=== PATIENT | male | born 1945 | race Caucasian/White ===

== ENCOUNTER 2016-02-18 09:44 | Emergency (ER) | payer OTHER, SELFPAY ==
[~2016-02-18 09:44] MED LIST: AMBI10TA PO; ASPI81TA45 PO; BUDE0.5S6 INH; CETI10TA PO; COLC1TAB13 PO; DIGO0.25 PO; DOXY10CA PO; ELIQ5TAB PO; FISH1000 PO; FURO20TA2 PO; LANO250T9 PO; LISI-538 PO; LISI10TA4 PO; PARO20TA2 PO; PARO40TA PO; PAXI40TA2 PO; PRED10TA PO; PROA1AER INH; PYRI100T5 PO; SENO8.6T10 PO; SOTA80TA2 PO; SYMB80INH INH; TENO1TAB3 PO; THIA100T PO; TYLE325T5 PO; VITA10002 PO; VITA100066 PO; VITA100T2 PO; VITATAB11 PO; VITMTA PO
--- NOTE | 2016-02-18 10:22 | EDDOCDS ---
Physician Documentation [facility] Name: Tru Kasper Age: 70 yrs Sex: Male : 1945 Arrival Date: 02/18/2016 Time: 09:44 Bed TR7 Private MD: [facility] Disposition: 02/18/16 10:08 Discharged to Home/Self Care. Impression: Effusion, left knee. - Condition is Stable. - Discharge Instructions: Knee Effusion, [id number]. - Prescriptions for Pennsaid 20 mg/gram /actuation(2 %) Topical solution in metered- dose pump - apply 1 application by TOPICAL route 2 times per day; 1 bottle. - Medication Reconciliation, Local Pharmacy Hours form. - Follow up: Orthopaedics, [facility]; When: Call to arrange an appointment; Reason: Further diagnostic work-up, Recheck today's complaints, Continuance of care. - Problem is new. - Symptoms are unchanged. Historical: - Allergies: no known allergies; - Home Meds: 1. albuterol sulfate 90 mcg/actuation Inhl aepb 1 puff every 4-6 hours as needed (Last dose: 02/18/2016 08:00) 2. atenolol 25 mg Oral tab 1 tab 2 times per day (Last dose: 02/18/2016 08:00) 3. cetirizine 10 mg oral tab 1 tab once daily (Last dose: 02/18/2016 08:00) 4. cyanocobalamin (vitamin B-12) 1,000 mcg oral tab daily (Last dose: 02/18/2016 08:00) 5. colchicine 0.6 mg Oral cap 1 cap once daily (Last dose: 02/18/2016 08:00) 6. apixaban 5 mg oral tab 1 tab 2 times per day (Last dose: 02/18/2016 08:00) 7. Symbicort 80-4.5 mcg/actuation inhalation HFAA 2 puffs 2 times per day (Last dose: 02/18/2016 08:00) 8. Vitamin D Oral 1,000 unit daily (Last dose: 02/18/2016 08:00) 9. digoxin 250 mcg Oral tab 1 tab once daily (Last dose: 02/18/2016 08:00) 10. paroxetine HCl 20 mg oral tab 1 tab once daily (Last dose: 02/18/2016 08:00) 11. pyridoxine 100 mg Oral tab daily (Last dose: 02/18/2016 08:00) 12. thiamine HCl 100 mg Oral tab daily (Last dose: 02/18/2016 08:00) 13. zolpidem 10 mg Oral tab 1 tab once daily (Last dose: 02/17/2016) - PMHx: Gout; CVA; Atrial Fib; Hypertension; COPD; Depression; Hypercholesterolemia; - PSHx: none; - Social history: Smoking status: Patient states was never smoker of tobacco. No barriers to communication noted, The patient speaks fluent Emirati. - Family history: Not pertinent. - : The pt / caregiver states he / she is on anticoagulants: Eliquis Home medication list is obtained from a discharge med list. - Exposure Risk Screening:: None identified. Vital Signs: 02/17 09:45 BP 101 / 57; Pulse 64; Resp 18; Temp 96.5; Pulse Ox 98% ; Weight 90.72 kg / 200 lbs elp (R); Height 6 ft. 2 in. (187.96 cm) (R); Pain 310; 09:45 Body Mass Index 25.68 (90.72 kg, 187.96 cm) elp Signatures: Renetta Anne RN RN Dutch Perla PA PA btw Castle, Jennifer RN RN jc4 MTDD
--- NOTE | 2016-02-18 10:22 | EDDOCDS ---
Nurse's Notes [facility] Name: Tru Kasper Age: 70 yrs Sex: Male : 1945 Arrival Date: 02/18/2016 Time: 09:44 Bed TR7 Private MD: [facility] [place] Diagnosis: Effusion, left knee Presentation: 02/17 09:49 Presenting complaint: Patient states: "it's the same problem as it was the last time. jc4 It's this knee, right this moment it's a 3". States that left knee is "somewhat is swollen and is in pain at times". Adult Sepsis Screening: The patient does not have new or worsening altered mentation. Patient's respiratory rate is less than 22. Systolic blood pressure is greater than 100. Patient has a qSOFA score of 0- Negative Sepsis Screen. Suicide/Homicide risk assessment- the patient denies having any suicidal and/or homicidal ideations and does not present with any other emotional, behavioral or mental health complaints. Status: Retired Marine. Transition of care: patient was not received from another setting of care. 09:49 Acuity: DEANNA Level 4 jc4 09:49 Method Of Arrival: Ambulance jc4 Triage Assessment: 09:57 General: Appears in no apparent distress. Pain: Pain currently is 3 out of 10 on a pain jc4 scale. Historical: - Allergies: no known allergies; - Home Meds: 1. albuterol sulfate 90 mcg/actuation Inhl aepb 1 puff every 4-6 hours as needed (Last dose: 02/18/2016 08:00) 2. atenolol 25 mg Oral tab 1 tab 2 times per day (Last dose: 02/18/2016 08:00) 3. cetirizine 10 mg oral tab 1 tab once daily (Last dose: 02/18/2016 08:00) 4. cyanocobalamin (vitamin B-12) 1,000 mcg oral tab daily (Last dose: 02/18/2016 08:00) 5. colchicine 0.6 mg Oral cap 1 cap once daily (Last dose: 02/18/2016 08:00) 6. apixaban 5 mg oral tab 1 tab 2 times per day (Last dose: 02/18/2016 08:00) 7. Symbicort 80-4.5 mcg/actuation inhalation HFAA 2 puffs 2 times per day (Last dose: 02/18/2016 08:00) 8. Vitamin D Oral 1,000 unit daily (Last dose: 02/18/2016 08:00) 9. digoxin 250 mcg Oral tab 1 tab once daily (Last dose: 02/18/2016 08:00) 10. paroxetine HCl 20 mg oral tab 1 tab once daily (Last dose: 02/18/2016 08:00) 11. pyridoxine 100 mg Oral tab daily (Last dose: 02/18/2016 08:00) 12. thiamine HCl 100 mg Oral tab daily (Last dose: 02/18/2016 08:00) 13. zolpidem 10 mg Oral tab 1 tab once daily (Last dose: 02/17/2016) - PMHx: Gout; CVA; Atrial Fib; Hypertension; COPD; Depression; Hypercholesterolemia; - PSHx: none; - Social history: Smoking status: Patient states was never smoker of tobacco. No barriers to communication noted, The patient speaks fluent Ivorian. - Family history: Not pertinent. - : The pt / caregiver states he / she is on anticoagulants: Eliquis Home medication list is obtained from a discharge med list. - Exposure Risk Screening:: None identified. Screenin:18 Screening information is obtained from the patient. Primary language is Ivorian. Fall dls risk: No risks identified. Assistance ADL's: requires no assistance with activities of daily living. Abuse/DV Screen: The patient / caregiver reports he/she is: not in a situation that causes fear, pain or injury. Nutritional screening: No deficits noted. Advance Directives: Currently, there is no health care proxy. There is no active DNR order. There is no living will. There is no Power of Hospital Admissions Officer. Advance directive information has not previously been placed in an [facility] medical record. home support is adequate. Assessment: 10:17 General: Appears in no apparent distress, Behavior is cooperative. Awake, alert, dls oriented. Skin warm and dry. Moves all extremities. Bilateral breath sounds clear. Respirations unlabored. Abdomen soft, non-tender. No apparent distress. The patient / caregiver is instructed regarding the plan of care and ED course. Vital Signs: 09:45 BP 101 / 57; Pulse 64; Resp 18; Temp 96.5; Pulse Ox 98% ; Weight 90.72 kg (R); Height 6 elp ft. 2 in. (187.96 cm) (R); Pain 3/10; 09:45 Body Mass Index 25.68 (90.72 kg, 187.96 cm) elp Vitals: 09:48 Log In Time N/A - ambulance arrival. elp ED Course: 09:45 Patient visited by Racheal Rogers PCA. elp 09:45 [facility] [place] is Private Physician. elp 09:45 Patient moved to Waiting elp 09:48 Patient moved to Pre RCE elp 09:51 Triage Initiated jc4 09:58 Patient moved to Triage 3 jc4 09:59 Dutch Marie [facility] is [facility]. btw 09:59 Luis Stern MD is Attending Physician. btw 09:59 Patient visited by Dutch Marie PA. btw 09:59 Patient moved to Triage 2 [facility]ls [facility] btw 10:17 Patient moved to TR7 jc4 10:18 Patient has correct armband on for positive identification. Bed in low position. Call dls light in reach. 10:21 No IV's were initiated during this patient's visit. No procedures done that require dls assistance. Order Results: There are currently no results for this order. Outcome: 10:08 Discharge ordered by Provider. btw 10:18 The following High Risk Discharge criteria are identified: None. Discharged to home dls ambulatory. Condition: stable. Discharge instructions given to patient, Instructed on discharge instructions, follow up and referral plans. medication usage, Demonstrated understanding of instructions, medications, Pt was receptive of discharge instructions/ teaching. Prescriptions given X 1. No special radiology studies were completed. 10:21 Discharge Assessment: Patient awake, alert and oriented x 3. No cognitive and/or dls functional deficits noted. Patient verbalized understanding of disposition instructions. patient administered narcotics - no. Discharged to home via wheelchair. Property :Personal belongings accompany Pt. 10:21 Patient left the ED. dls Signatures: Renetta Anne RN RN dls Wolfenden, Brandon, PA PA btw Castle, Jennifer, RN RN jc4 Patchen, Erin, PCA [facility] elp Corrections: (The following items were deleted from the chart) 09:48 09:45 Log In Time: February 18, 2016 at 09:43 elp elp MTDD
--- NOTE | 2016-02-21 10:46 | EDDOCDS ---
Physician Documentation [facility] Name: Tru Kasper Age: 70 yrs Sex: Male : 1945 Arrival Date: 02/18/2016 Time: 09:44 Bed TR7 Private MD: [facility] Disposition: 02/18/16 10:08 Discharged to Home/Self Care. Impression: Effusion, left knee. - Condition is Stable. - Discharge Instructions: Knee Effusion, [id number]. - Prescriptions for Pennsaid 20 mg/gram /actuation(2 %) Topical solution in metered- dose pump - apply 1 application by TOPICAL route 2 times per day; 1 bottle. - Medication Reconciliation, Local Pharmacy Hours form. - Follow up: Orthopaedics, [facility]; When: Call to arrange an appointment; Reason: Further diagnostic work-up, Recheck today's complaints, Continuance of care. - Problem is new. - Symptoms are unchanged. Historical: - Allergies: no known allergies; - Home Meds: 1. albuterol sulfate 90 mcg/actuation Inhl aepb 1 puff every 4-6 hours as needed (Last dose: 02/18/2016 08:00) 2. atenolol 25 mg Oral tab 1 tab 2 times per day (Last dose: 02/18/2016 08:00) 3. cetirizine 10 mg oral tab 1 tab once daily (Last dose: 02/18/2016 08:00) 4. cyanocobalamin (vitamin B-12) 1,000 mcg oral tab daily (Last dose: 02/18/2016 08:00) 5. colchicine 0.6 mg Oral cap 1 cap once daily (Last dose: 02/18/2016 08:00) 6. apixaban 5 mg oral tab 1 tab 2 times per day (Last dose: 02/18/2016 08:00) 7. Symbicort 80-4.5 mcg/actuation inhalation HFAA 2 puffs 2 times per day (Last dose: 02/18/2016 08:00) 8. Vitamin D Oral 1,000 unit daily (Last dose: 02/18/2016 08:00) 9. digoxin 250 mcg Oral tab 1 tab once daily (Last dose: 02/18/2016 08:00) 10. paroxetine HCl 20 mg oral tab 1 tab once daily (Last dose: 02/18/2016 08:00) 11. pyridoxine 100 mg Oral tab daily (Last dose: 02/18/2016 08:00) 12. thiamine HCl 100 mg Oral tab daily (Last dose: 02/18/2016 08:00) 13. zolpidem 10 mg Oral tab 1 tab once daily (Last dose: 02/17/2016) - PMHx: Gout; CVA; Atrial Fib; Hypertension; COPD; Depression; Hypercholesterolemia; - PSHx: none; - Social history: Smoking status: Patient states was never smoker of tobacco. No barriers to communication noted, The patient speaks fluent Telugu. - Family history: Not pertinent. - : The pt / caregiver states he / she is on anticoagulants: Eliquis Home medication list is obtained from a discharge med list. - Exposure Risk Screening:: None identified. Vital Signs: 02/17 09:45 BP 101 / 57; Pulse 64; Resp 18; Temp 96.5; Pulse Ox 98% ; Weight 90.72 kg / 200 lbs elp (R); Height 6 ft. 2 in. (187.96 cm) (R); Pain 3; 09:45 Body Mass Index 25.68 (90.72 kg, 187.96 cm) elp MDM: 10:23 [facility] Agreement was scanned into [employer] and attached to record. 10:23 Financial registration complete. 11:55 T-Sheet-- Draft Copy was scanned into [employer] and attached to record. [facility] Signatures: Renetta Anne RN RN dls Wolfenden, Brandon, PA PA btw Castle, Jennifer, RN RN jc4 Hoffert, Sarah seh McLear, Diane dm1 The chart was reviewed and I authenticate all verbal orders and agree with the evaluation and treatment provided.Attachments: 10: [facility] dm1 11:55 T-Sheet-- Draft Copy [facility] Chart Complete MTDD
--- NOTE | 2016-02-21 10:46 | EDDOCDS ---
Physician Documentation [facility] Name: Tru Kasper Age: 70 yrs Sex: Male : 1945 Arrival Date: 02/18/2016 Time: 09:44 Bed TR7 Private MD: [facility] Disposition: 02/18/16 10:08 Discharged to Home/Self Care. Impression: Effusion, left knee. - Condition is Stable. - Discharge Instructions: Knee Effusion, [id number]-[id number]. - Prescriptions for Pennsaid 20 mg/gram /actuation(2 %) Topical solution in metered- dose pump - apply 1 application by TOPICAL route 2 times per day; 1 bottle. - Medication Reconciliation, Local Pharmacy Hours form. - Follow up: Orthopaedics, [facility]; When: Call to arrange an appointment; Reason: Further diagnostic work-up, Recheck today's complaints, Continuance of care. - Problem is new. - Symptoms are unchanged. Historical: - Allergies: no known allergies; - Home Meds: 1. albuterol sulfate 90 mcg/actuation Inhl aepb 1 puff every 4-6 hours as needed (Last dose: 02/18/2016 08:00) 2. atenolol 25 mg Oral tab 1 tab 2 times per day (Last dose: 02/18/2016 08:00) 3. cetirizine 10 mg oral tab 1 tab once daily (Last dose: 02/18/2016 08:00) 4. cyanocobalamin (vitamin B-12) 1,000 mcg oral tab daily (Last dose: 02/18/2016 08:00) 5. colchicine 0.6 mg Oral cap 1 cap once daily (Last dose: 02/18/2016 08:00) 6. apixaban 5 mg oral tab 1 tab 2 times per day (Last dose: 02/18/2016 08:00) 7. Symbicort 80-4.5 mcg/actuation inhalation HFAA 2 puffs 2 times per day (Last dose: 02/18/2016 08:00) 8. Vitamin D Oral 1,000 unit daily (Last dose: 02/18/2016 08:00) 9. digoxin 250 mcg Oral tab 1 tab once daily (Last dose: 02/18/2016 08:00) 10. paroxetine HCl 20 mg oral tab 1 tab once daily (Last dose: 02/18/2016 08:00) 11. pyridoxine 100 mg Oral tab daily (Last dose: 02/18/2016 08:00) 12. thiamine HCl 100 mg Oral tab daily (Last dose: 02/18/2016 08:00) 13. zolpidem 10 mg Oral tab 1 tab once daily (Last dose: 02/17/2016) - PMHx: Gout; CVA; Atrial Fib; Hypertension; COPD; Depression; Hypercholesterolemia; - PSHx: none; - Social history: Smoking status: Patient states was never smoker of tobacco. No barriers to communication noted, The patient speaks fluent Nepali. - Family history: Not pertinent. - : The pt / caregiver states he / she is on anticoagulants: Eliquis Home medication list is obtained from a discharge med list. - Exposure Risk Screening:: None identified. Vital Signs: 02/17 09:45 BP 101 / 57; Pulse 64; Resp 18; Temp 96.5; Pulse Ox 98% ; Weight 90.72 kg / 200 lbs elp (R); Height 6 ft. 2 in. (187.96 cm) (R); Pain 3; 09:45 Body Mass Index 25.68 (90.72 kg, 187.96 cm) elp MDM: 10:23 [facility] [place] Agreement was scanned into [employer] and attached to record. 10:23 Financial registration complete. 11:55 T-Sheet-- Draft Copy was scanned into [employer] and attached to record. [facility] Signatures: Renetta Anne RN RN dls Wolfenden, Brandon, PA PA btw Castle, Jennifer, RN RN jc4 Hoffert, Sarah seh McLear, Diane dm1 The chart was reviewed and I authenticate all verbal orders and agree with the evaluation and treatment provided.Attachments: 10: [facility] [place] dm1 11:55 T-Sheet-- Draft Copy [facility] Chart Complete MTDD
--- NOTE | 2016-02-21 10:47 | EDDOCDS ---
Nurse's Notes [facility] Name: Tru Kasper Age: 70 yrs Sex: Male : 1945 Arrival Date: 02/18/2016 Time: 09:44 Bed TR7 Private MD: [facility] [place] Diagnosis: Effusion, left knee Presentation: 02/17 09:49 Presenting complaint: Patient states: "it's the same problem as it was the last time. jc4 It's this knee, right this moment it's a 3". States that left knee is "somewhat is swollen and is in pain at times". Adult Sepsis Screening: The patient does not have new or worsening altered mentation. Patient's respiratory rate is less than 22. Systolic blood pressure is greater than 100. Patient has a qSOFA score of 0- Negative Sepsis Screen. Suicide/Homicide risk assessment- the patient denies having any suicidal and/or homicidal ideations and does not present with any other emotional, behavioral or mental health complaints. Status: Retired Marine. Transition of care: patient was not received from another setting of care. 09:49 Acuity: DEANNA Level 4 jc4 09:49 Method Of Arrival: Ambulance jc4 Triage Assessment: 09:57 General: Appears in no apparent distress. Pain: Pain currently is 3 out of 10 on a pain jc4 scale. Historical: - Allergies: no known allergies; - Home Meds: 1. albuterol sulfate 90 mcg/actuation Inhl aepb 1 puff every 4-6 hours as needed (Last dose: 02/18/2016 08:00) 2. atenolol 25 mg Oral tab 1 tab 2 times per day (Last dose: 02/18/2016 08:00) 3. cetirizine 10 mg oral tab 1 tab once daily (Last dose: 02/18/2016 08:00) 4. cyanocobalamin (vitamin B-12) 1,000 mcg oral tab daily (Last dose: 02/18/2016 08:00) 5. colchicine 0.6 mg Oral cap 1 cap once daily (Last dose: 02/18/2016 08:00) 6. apixaban 5 mg oral tab 1 tab 2 times per day (Last dose: 02/18/2016 08:00) 7. Symbicort 80-4.5 mcg/actuation inhalation HFAA 2 puffs 2 times per day (Last dose: 02/18/2016 08:00) 8. Vitamin D Oral 1,000 unit daily (Last dose: 02/18/2016 08:00) 9. digoxin 250 mcg Oral tab 1 tab once daily (Last dose: 02/18/2016 08:00) 10. paroxetine HCl 20 mg oral tab 1 tab once daily (Last dose: 02/18/2016 08:00) 11. pyridoxine 100 mg Oral tab daily (Last dose: 02/18/2016 08:00) 12. thiamine HCl 100 mg Oral tab daily (Last dose: 02/18/2016 08:00) 13. zolpidem 10 mg Oral tab 1 tab once daily (Last dose: 02/17/2016) - PMHx: Gout; CVA; Atrial Fib; Hypertension; COPD; Depression; Hypercholesterolemia; - PSHx: none; - Social history: Smoking status: Patient states was never smoker of tobacco. No barriers to communication noted, The patient speaks fluent Burmese. - Family history: Not pertinent. - : The pt / caregiver states he / she is on anticoagulants: Eliquis Home medication list is obtained from a discharge med list. - Exposure Risk Screening:: None identified. Screenin:18 Screening information is obtained from the patient. Primary language is Burmese. Fall dls risk: No risks identified. Assistance ADL's: requires no assistance with activities of daily living. Abuse/DV Screen: The patient / caregiver reports he/she is: not in a situation that causes fear, pain or injury. Nutritional screening: No deficits noted. Advance Directives: Currently, there is no health care proxy. There is no active DNR order. There is no living will. There is no Power of Automobile Locator. Advance directive information has not previously been placed in an [facility] medical record. home support is adequate. Assessment: 10:17 General: Appears in no apparent distress, Behavior is cooperative. Awake, alert, dls oriented. Skin warm and dry. Moves all extremities. Bilateral breath sounds clear. Respirations unlabored. Abdomen soft, non-tender. No apparent distress. The patient / caregiver is instructed regarding the plan of care and ED course. Vital Signs: 09:45 BP 101 / 57; Pulse 64; Resp 18; Temp 96.5; Pulse Ox 98% ; Weight 90.72 kg (R); Height 6 elp ft. 2 in. (187.96 cm) (R); Pain 310; 09:45 Body Mass Index 25.68 (90.72 kg, 187.96 cm) elp Vitals: 09:48 Log In Time N/A - ambulance arrival. elp ED Course: 09:45 Patient visited by Racheal Rogers PCA. elp 09:45 [facility] [place] is Private Physician. elp 09:45 Patient moved to Waiting elp 09:48 Patient moved to Pre RCE elp 09:51 Triage Initiated jc4 09:58 Patient moved to Triage 3 jc4 09:59 [facility] btw 09:59 Luis Stern MD is Attending Physician. btw 09:59 Patient visited by Dutch Marie PA. btw 09:59 Patient moved to Triage 2 dls [facility] btw 10:17 Patient moved to TR7 jc4 10:18 Patient has correct armband on for positive identification. Bed in low position. Call dls light in reach. 10:21 No IV's were initiated during this patient's visit. No procedures done that require dls assistance. 10:23 [facility] [place] Payment Agreement was scanned into [employer] and attached to record. [id number] 11:55 T-Sheet-- Draft Copy was scanned into [employer] and attached to record. [facility] Order Results: There are currently no results for this order. Outcome: 10:08 Discharge ordered by Provider. btw 10:18 The following High Risk Discharge criteria are identified: None. Discharged to home dls ambulatory. Condition: stable. Discharge instructions given to patient, Instructed on discharge instructions, follow up and referral plans. medication usage, Demonstrated understanding of instructions, medications, Pt was receptive of discharge instructions/ teaching. Prescriptions given X 1. No special radiology studies were completed. 10:21 Discharge Assessment: Patient awake, alert and oriented x 3. No cognitive and/or dls functional deficits noted. Patient verbalized understanding of disposition instructions. patient administered narcotics - no. Discharged to home via wheelchair. Property :Personal belongings accompany Pt. 10:21 Patient left the ED. dls Signatures: Renetta Anne RN RN Dutch Perla PA PA btw Margie King RN RN jc4 Ken, Racheal, REHAB AID REHAB AID elp Barrett, Katia Rabago [email or web address] Corrections: (The following items were deleted from the chart) 09:48 09:45 Log In Time: February 18, 2016 at 09:43 yamilet woodard Chart Complete MTDD
== END 2016-02-18 10:21 | disposition home or self-care (01) ==
LOC: M ED 09:44
DX: M25.462 Effusion, left knee (principal); I10 Essential (primary) hypertension; J44.9 Chronic obstructive pulmonary disease, unspecified; F32.9 Major depressive disorder, single episode, unspecified; E78.00 Pure hypercholesterolemia, unspecified; M10.9 Gout, unspecified; I48.91 Unspecified atrial fibrillation; I63.9 Cerebral infarction, unspecified; Z79.899 Other long term (current) drug therapy; Z79.01 Long term (current) use of anticoagulants

== ENCOUNTER → 2016-02-29 | Outpatient (REF) | payer SELFPAY ==
[~2016-02-29] MED LIST changes: +LANO250T12 PO; -LANO250T9 PO
[2016-02-29 13:38] LABS: BASO # 0.1 K/mm3 (0.0-0.2); BASO % 0.9 % (0.0-1.0); EOS # 0.2 K/mm3 (0.0-0.50); EOS % 2.6 % (0.0-3.0); LARGE UNSTAINED CELL # 0.2 K/mm3 (0.0-0.4); LARGE UNSTAINED CELL % 3.2 % (0.0-4.0); LYMPH # 1.6 K/mm3 (1.5-4.5); LYMPH % 21.1 % (24.0-44.0); MEAN CORPUSCULAR HEMOGLOBIN 33.6 pg (27.0-33.0); MEAN CORPUSCULAR HGB CONC 33.9 g/dl (32.0-36.5); MEAN CORPUSCULAR VOLUME 99.2 fl (80.0-96.0); MONO # 0.4 K/mm3 (0.0-0.8); MONO % 5.9 % (0.0-5.0); NEUTROPHILS # 4.9 K/mm3 (1.8-7.7); NEUTROPHILS % 66.2 % (36.0-66.0); PLATELET COUNT, AUTOMATED 348 k/mm3 (150-450); RED CELL DISTRIBUTION WIDTH 13.6 % (11.5-14.5); WHITE BLOOD COUNT 7.4 K/mm3 (4.0-10.0)
[2016-02-29 13:40] LABS: ANION GAP 8 MEQ/L (8-16); BLOOD UREA NITROGEN 10 MG/DL (7-18); CALCIUM LEVEL 8.8 MG/DL (8.8-10.2); CARBON DIOXIDE LEVEL 27 MEQ/L (21-32); CHLORIDE LEVEL 106 MEQ/L (98-107); CREATININE FOR GFR 1.12 MG/DL (0.70-1.30); GLOMERULAR FILTRATION RATE > 60.0 (>49); GLUCOSE, FASTING 95 MG/DL (80-110); POTASSIUM SERUM 4.6 MEQ/L (3.5-5.1); SODIUM LEVEL 141 MEQ/L (136-145); URIC ACID 7.6 MG/DL (3.5-7.2)
[2016-02-29 14:24] LABS: ERYTHROCYTE SEDIMENTATION RATE 49 mm/hr (0-20)
== END ==
LOC: M SFHCPLAZ 11:07
PROVIDERS: ATTEND Internal Medicine Infectious Disease
DX: A69.20 Lyme disease, unspecified (principal); M10.00 Idiopathic gout, unspecified site

== ENCOUNTER 2017-06-19 08:22 | Emergency (ER) | payer OTHER, SELFPAY ==
[2017-06-19] MEDS: ACETAMINOPHEN 325 MG TAB PO ×2 (09:26)
[2017-06-19] MEDS: METHOCARBAMOL 500 MG TAB PO ×2 (09:27)
[2017-06-19 10:41] LABS: KETONE, URINE AUTO RFX NEGATIVE (NEGATIVE); LEUKOCYTE ESTERASE UR AUTO RFX NEGATIVE (NEGATIVE); MUCUS, URINE RFX LARGE (NEGATIVE); NITRITE, URINE AUTO RFX NEGATIVE (NEGATIVE); RBC, URINE AUTO RFX 0 /HPF (0-3); SQUAM EPITHELIAL CELL UR AURFX 0 /HPF (0-6); WBC, URINE AUTO RFX 1 /HPF (0-3)
== END 2017-06-19 11:14 | disposition home or self-care (01) ==
LOC: M ED 08:22
DX: M62.830 Muscle spasm of back (principal); I48.91 Unspecified atrial fibrillation; I10 Essential (primary) hypertension; J44.9 Chronic obstructive pulmonary disease, unspecified; F32.9 Major depressive disorder, single episode, unspecified; Z86.73 Personal history of transient ischemic attack (TIA), and cerebral infarction without residual deficits; J30.89 Other allergic rhinitis; Z79.899 Other long term (current) drug therapy; Z79.01 Long term (current) use of anticoagulants; Z79.51 Long term (current) use of inhaled steroids
CPT/HCPCS: 81001

== ENCOUNTER 2018-01-29 07:35 | Day surgery (SDC) | payer OTHER ==
[~2018-01-29] VITALS: Ht 185.4 cm; Wt 88.0 kg
[~2018-01-29 07:35] MED LIST changes: +ATEN25TA PO; +ATOR80TA59 PO; +B-1210009 PO; +B-COTAB10 PO; +COMMENT; +DOXY100T2 PO; -DOXY10CA PO; -LANO250T12 PO; +LANO250T15 PO; +LIPI80TA PO; +MUPI2OI TOP; -PARO20TA2 PO; +PARO20TA3 PO; -PARO40TA PO; +PARO40TA2 PO; +PAXI40TA10 PO; -PAXI40TA2 PO; -PRED10TA PO; +PRED10TA2 PO; -PROA1AER INH; +PROAAER10 INH; +ROBA500T PO; +SYMB16INH INH; -THIA100T PO; +THIA100T7 PO; +THIA100TA PO; +VITA-112 PO; -VITA100T2 PO; +VITA100T8 PO; +ZOLP10TA2 PO; +ZYLO300T6 PO
[2018-01-29] MEDS ORDERED: NS 1,000 ML IV ONE (07:45)
[2018-01-29] MEDS ORDERED: PROPOFOL 200 MG/20 ML VIAL As Ordered ONE ×3 (09:04→09:31)
--- NOTE | 2018-01-29 09:47 | ROOR ---
Patient Name: Tru Kasper Procedure Date: 01/29/2018 8:46 AM Date of : 1945 Age: 72 Room: [facility] Gender: Male Note Status: Finalized Procedure: Colonoscopy Indications: Screening for colorectal malignant neoplasm Providers: Raoul Newell MD Referring MD: [facility], Admin. Requesting Provider: Medicines: Monitored Anesthesia Care Complications: No immediate complications. Procedure: Pre-Anesthesia Assessment: - Prior to the procedure, a History and Physical was performed, and patient medications and allergies were reviewed. The patient is competent. The risks and benefits of the procedure and the sedation options and risks were discussed with the patient. All questions were answered and informed consent was obtained. Patient identification and proposed procedure were verified by the physician, the nurse and the rigging loft repairer in the endoscopy suite. Mental Status Examination: alert and oriented. Airway Examination: normal oropharyngeal airway and neck mobility. Respiratory Examination: clear to auscultation. CV Examination: irregularly irregular rate and rhythm. Prophylactic Antibiotics: The patient does not require prophylactic antibiotics. Prior Anticoagulants: The patient has taken Eliquis (apixaban), last dose was 1 day prior to procedure. ASA Grade Assessment: III - A patient with severe systemic disease. After reviewing the risks and benefits, the patient was deemed in satisfactory condition to undergo the procedure. The anesthesia plan was to use monitored anesthesia care (MAC). Immediately prior to administration of medications, the patient was re-assessed for adequacy to receive sedatives. The heart rate, respiratory rate, oxygen saturations, blood pressure, adequacy of pulmonary ventilation, and response to care were monitored throughout the procedure. The physical status of the patient was re-assessed after the procedure. The Colonoscope was introduced through the anus and advanced to the cecum, identified by appendiceal orifice and ileocecal valve. The colonoscopy was performed without difficulty. The patient tolerated the procedure well. The quality of the bowel preparation was good. Findings: The perianal and digital rectal examinations were normal. A diminutive polyp was found in the proximal ascending colon. The polyp was flat. The polyp was removed with a hot snare. Resection and retrieval were complete. Estimated blood loss: none. Two flat polyps were found in the sigmoid colon. The polyps were diminutive in size. These polyps were removed with a cold biopsy forceps. Resection and retrieval were complete. Estimated blood loss was minimal. Impression: - One diminutive polyp in the proximal ascending colon, removed with a hot snare. Resected and retrieved. - Two diminutive polyps in the sigmoid colon, removed with a cold biopsy forceps. Resected and retrieved. Recommendation: - Telephone my office for pathology results in 2 weeks. - Resume Eliquis (apixaban) at prior dose tomorrow. Raoul Newell MD Raoul Newell MD 01/29/2018 9:47:23 AM This report has been signed electronically. Number of Addenda: 0 Note Initiated On: 01/29/2018 8:46 AM Estimated Blood Loss: Estimated blood loss was minimal.
[2018-01-29 10:17] VITALS: BP 140/82
== END 2018-01-29 10:17 | disposition home or self-care (01) ==
LOC: M OPP 07:35
PROVIDERS: ATTEND Surgery
DX: D12.2 Benign neoplasm of ascending colon (principal); D12.5 Benign neoplasm of sigmoid colon; Z12.11 Encounter for screening for malignant neoplasm of colon

== ENCOUNTER 2022-04-06 11:05 | Emergency (ER) | payer OTHER ==
[~2022-04-06 11:05] MED LIST changes: +COLC0.6T47 PO; -COLC1TAB13 PO; +CYAN100049 PO; +DIGO0.253 PO; -LISI-538 PO; +LISI10TA22 PO; -LISI10TA4 PO; +LISI20TA33 PO; -PAXI40TA10 PO; +PAXI40TA12 PO; -VITA10002 PO
[2022-04-06 12:59] LABS: ALBUMIN 3.2 G/DL (3.2-5.2); BILIRUBIN,DIRECT 0.5 MG/DL (<0.4); BILIRUBIN,TOTAL 1.2 MG/DL (0.3-1.2); CALCIUM LEVEL 9.1 MG/DL (8.3-10.6); CREATININE FOR GFR 1.49 MG/DL (0.70-1.30); GLOMERULAR FILTRATION RATE 48.9 (>42); POTASSIUM SERUM 4.4 MMOL/L (3.5-5.1); TOTAL PROTEIN 6.3 G/DL (5.7-8.2)
[2022-04-06 13:02] LABS: THYROID STIMULATING HORMONE 1.581 uIU/ML (0.55-4.78)
[2022-04-06 15:15] LABS: BASO # 0.1 10^3/uL (0.0-0.2); BASO % 0.4 % (0.0-1.0); EOS % 0.2 % (0.0-3.0); HEMOGLOBIN 14.9 g/dl (13.5-17.5); LYMPH # 0.9 10^3/uL (1.5-5.0); LYMPH % 7.4 % (24.0-44.0); MEAN CORPUSCULAR HEMOGLOBIN 33.4 pg (27.0-33.0); MEAN CORPUSCULAR HGB CONC 33.1 g/dl (32.0-36.5); MEAN CORPUSCULAR VOLUME 100.9 fl (80.0-96.0); MONO % 13.6 % (2.0-8.0); NEUTROPHILS # 9.1 10^3/uL (1.5-8.5); NEUTROPHILS % 77.8 % (36.0-66.0); PLATELET COUNT, AUTOMATED 209 10^3/uL (150-450); RED BLOOD COUNT 4.46 10^6/uL (4.30-6.10); WHITE BLOOD COUNT 11.7 10^3/uL (4.0-10.0)
[2022-04-06 16:00] VITALS: BP 134/91
[2022-04-06 16:21] LABS: MONO # 1.6 10^3/uL (0.0-0.8)
== END 2022-04-06 16:41 | disposition home or self-care (01) ==
LOC: M ED 11:05
DX: N28.9 Disorder of kidney and ureter, unspecified (principal); E04.1 Nontoxic single thyroid nodule; W06.XXXA Fall from bed, initial encounter; Y92.099 Unspecified place in other non-institutional residence as the place of occurrence of the external cause; F03.90 Unspecified dementia, unspecified severity, without behavioral disturbance, psychotic disturbance, mood disturbance, and anxiety; I48.91 Unspecified atrial fibrillation; I50.9 Heart failure, unspecified; I10 Essential (primary) hypertension; J30.89 Other allergic rhinitis; Z86.73 Personal history of transient ischemic attack (TIA), and cerebral infarction without residual deficits; Z79.01 Long term (current) use of anticoagulants; Z79.890 Hormone replacement therapy

== ENCOUNTER → 2022-07-04 | Outpatient (CLI) | payer OTHER ==
[2022-07-04 11:30] LABS: BASO # 0.1 10^3/uL (0.0-0.2); BASO % 1.2 % (0.0-1.0); EOS # 0.3 10^3/uL (0.0-0.5); EOS % 3.8 % (0.0-3.0); HEMATOCRIT 41.6 % (42.0-52.0); HEMOGLOBIN 13.8 g/dl (13.5-17.5); LYMPH # 1.9 10^3/uL (1.5-5.0); LYMPH % 27.9 % (24.0-44.0); MEAN CORPUSCULAR HEMOGLOBIN 33.6 pg (27.0-33.0); MEAN CORPUSCULAR HGB CONC 33.2 g/dl (32.0-36.5); MEAN CORPUSCULAR VOLUME 101.2 fl (80.0-96.0); MONO # 0.7 10^3/uL (0.0-0.8); NEUTROPHILS # 3.9 10^3/uL (1.5-8.5); NEUTROPHILS % 56.4 % (36.0-66.0); PLATELET COUNT, AUTOMATED 207 10^3/uL (150-450); RED BLOOD COUNT 4.11 10^6/uL (4.30-6.10); WHITE BLOOD COUNT 6.8 10^3/uL (4.0-10.0)
[2022-07-04 11:39] LABS: ERYTHROCYTE SEDIMENTATION RATE 18 mm/hr (0-20)
[2022-07-04 11:58] LABS: ALBUMIN 3.2 G/DL (3.2-5.2); ALKALINE PHOSPHATASE 136 U/L (46-116); ALT/SGPT 15 U/L (7.0-40); AST/SGOT 18 U/L (<34); BILIRUBIN,TOTAL 0.6 MG/DL (0.3-1.2); BLOOD UREA NITROGEN 11 MG/DL (9-23); CALCIUM LEVEL 8.6 MG/DL (8.3-10.6); CARBON DIOXIDE LEVEL 28 MMOL/L (20-31); CHLORIDE LEVEL 110 MMOL/L (98-107); CREATININE FOR GFR 0.96 MG/DL (0.70-1.30); GLOMERULAR FILTRATION RATE > 60.0 (>42); GLUCOSE, FASTING 94 MG/DL (74-106); POTASSIUM SERUM 3.8 MMOL/L (3.5-5.1); RHEUMATOID FACTOR QUANT 6.7 IU/ML (<14); SODIUM LEVEL 139 MMOL/L (136-145); TOTAL PROTEIN 5.9 G/DL (5.7-8.2)
[2022-07-04 11:59] LABS: FOLATE 7.6 NG/ML (>5.4); THYROID STIMULATING HORMONE 2.034 uIU/ML (0.55-4.78); VITAMIN B12 LEVEL 260 PG/ML (211-911)
[2022-07-05 13:10] LABS: ANTINUCLEAR ANTIBODIES DIRECT Negative (Negative)
[2022-07-07 03:09] LABS: VITAMIN B6,PYRIDOXAL PHOSPHATE 1.3 ug/L (3.4-65.2)
[2022-07-07 08:10] LABS: VITAMIN E(ALPHA TOCOPHEROL) 8.3 mg/L (9.0-29.0); VITAMIN E(GAMMA TOCOPHEROL) 0.8 mg/L (0.5-4.9)
== END ==
LOC: M LAB 10:05
PROVIDERS: ATTEND Psychiatry & Neurology Neurology
DX: R41.89 Other symptoms and signs involving cognitive functions and awareness (principal); I10 Essential (primary) hypertension

== ENCOUNTER → 2022-07-04 | Outpatient (CLI) | payer OTHER ==
[2022-07-04 11:56] LABS: BLOOD UREA NITROGEN 11 MG/DL (9-23); CREATININE FOR GFR 0.95 MG/DL (0.70-1.30); GLOMERULAR FILTRATION RATE > 60.0 (>42)
== END ==
LOC: M LAB 10:03
PROVIDERS: ATTEND Psychiatry & Neurology Neurology
DX: I10 Essential (primary) hypertension (principal)

== ENCOUNTER 2022-07-08 15:02 | Emergency (ER) | payer MEDICARE, OTHER ==
[~2022-07-08] VITALS: Ht 188 cm; Wt 85.9 kg
[2022-07-08] MEDS ORDERED: NS 500 ML IV ONE (15:35)
[2022-07-08 16:08] LABS: HEMATOCRIT 40.5 % (42.0-52.0); HEMOGLOBIN 13.4 g/dl (13.5-17.5); MEAN CORPUSCULAR HEMOGLOBIN 33.1 pg (27.0-33.0); MEAN CORPUSCULAR HGB CONC 33.1 g/dl (32.0-36.5); PLATELET COUNT, AUTOMATED 186 10^3/uL (150-450); RED BLOOD COUNT 4.05 10^6/uL (4.30-6.10); WHITE BLOOD COUNT 9.8 10^3/uL (4.0-10.0)
[2022-07-08 16:27] LABS: CREATININE FOR GFR 1.25 MG/DL (0.70-1.30); DIGOXIN LEVEL 1.3 NG/ML (0.8-2.0); GLOMERULAR FILTRATION RATE 59.9 (>42); POTASSIUM SERUM 4.4 MMOL/L (3.5-5.1)
[2022-07-08 17:15] VITALS: BP 149/81
== END 2022-07-08 17:42 | disposition home or self-care (01) ==
LOC: M ED 15:02 → EDBD 15:02 → M ED 17:42
DX: T67.5XXA Heat exhaustion, unspecified, initial encounter (principal); X30.XXXA Exposure to excessive natural heat, initial encounter; Y92.89 Other specified places as the place of occurrence of the external cause; Y93.89 Activity, other specified; Y99.8 Other external cause status; I48.91 Unspecified atrial fibrillation; I50.20 Unspecified systolic (congestive) heart failure; Z79.01 Long term (current) use of anticoagulants; J44.9 Chronic obstructive pulmonary disease, unspecified; Z86.73 Personal history of transient ischemic attack (TIA), and cerebral infarction without residual deficits; F03.90 Unspecified dementia, unspecified severity, without behavioral disturbance, psychotic disturbance, mood disturbance, and anxiety; Z79.899 Other long term (current) drug therapy

== ENCOUNTER 2022-07-27 14:52 | Observation (INO) | payer OTHER ==
[~2022-07-27] VITALS: Ht 188 cm; Wt 89.8 kg
[~2022-07-27 14:52] MED LIST changes: +ALBU2.5V10 INH; +ALLO300T2 PO; +D 1010002 PO; +ceFAZolin SOD 2 GM in IV 1 EA IV ONE
[2022-07-27] MEDS ORDERED: LR 1,000 ML IV SCH (15:15)
[2022-07-27] MEDS ORDERED: ALBU8.5H INH (16:18)
[2022-07-27] MEDS ORDERED: ADV250INH INH (16:18)
[2022-07-27] MEDS ORDERED: propofoL 500 MG/50 ML VIAL As Ordered ONE (16:19)
[2022-07-27] MEDS ORDERED: propofoL 200 MG/20 ML VIAL As Ordered ONE (16:19)
[2022-07-27] MEDS ORDERED: fentaNYL 100 MCG/2 ML INJECTION As Ordered ONE (16:19)
[2022-07-27] MEDS ORDERED: LIDOCAINE 2% 100MG/5ML SDV (FOR ANES.) As Ordered ONE (16:19)
[2022-07-27] MEDS ORDERED: HOME MED LIST COMPLETE! XX SCH (16:20)
[2022-07-27] MEDS ORDERED: ISOVUE-300 61% 100ML VIAL As Ordered ONE (17:04)
[2022-07-27] MEDS ORDERED: LIDOCAINE 1% MDV 20ML VIAL As Ordered ONE (17:04)
[2022-07-27] MEDS ORDERED: MUPIROCIN 2% OINT 22 GM TUBE As Ordered ONE (17:05)
[2022-07-27] MEDS ORDERED: KETAMINE HCL 200MG/20ML VIAL As Ordered ONE (17:11)
[2022-07-27] MEDS ORDERED: ONDANSETRON 4MG 2ML VIAL IV PRN (19:05)
[2022-07-27] MEDS ORDERED: fentaNYL 100 MCG/2 ML INJECTION IV PRN (19:05)
[2022-07-27 20:28] VITALS: BP 127/72; TEMP 96.8; O2SAT 100
[2022-07-27] MEDS ORDERED: ALBUTEROL 90 MCG/ACT 8GM HFA INHALER INH PRN (21:15)
[2022-07-27] MEDS ORDERED: zolPIDEM TARTRATE 5 MG TAB PO PRN (21:20)
[2022-07-27] MEDS: ACETAMINOPHEN TAB 650MG DOSE (2X325MG) PO SCH (22:09)
[2022-07-27] MEDS: ATORVASTATIN 20 MG TAB PO SCH (22:09)
[2022-07-28 00:14] VITALS: BP 154/70; TEMP 97.1; O2SAT 99
[2022-07-28 03:43] VITALS: BP 157/68; TEMP 97; O2SAT 100
[2022-07-28 07:35] VITALS: BP 125/63; TEMP 96.9; O2SAT 99
[2022-07-28] MEDS: ADVAIR HFA 115/21MCG INHALER INH SCH ×2 (08:25→19:24)
[2022-07-28] MEDS ORDERED: dilTIAZem **CD** 180MG CAP PO SCH (09:00)
[2022-07-28] MEDS: VITAMIN D 1,000 INTERNATIONAL UNITS TABLET PO SCH (10:01)
[2022-07-28] MEDS: ACETAMINOPHEN TAB 650MG DOSE (2X325MG) PO SCH ×2 (10:01→20:39)
[2022-07-28] MEDS: MULTIVITAMINS/MINERALS THERAP 1 TAB PO SCH (10:01)
[2022-07-28] MEDS: PARoxetine 20MG TABLET PO SCH (10:02)
[2022-07-28] MEDS: CETIRIZINE (ZyrTEC) 10 MG TAB PO SCH (10:02)
[2022-07-28] MEDS: allopurinoL 300 MG TAB PO SCH (10:02)
[2022-07-28] MEDS ORDERED: DILT120C78 PO (12:02)
[2022-07-28] MEDS ORDERED: ACET1TAB55 PO (12:02)
[2022-07-28] MEDS ORDERED: VITA250T4 PO (12:02)
[2022-07-28 12:12] VITALS: BP 120/59; TEMP 97.1; O2SAT 96
[2022-07-28 16:16] VITALS: BP 150/79; TEMP 96.9; O2SAT 96
[2022-07-28 16:50] LABS: BASO # 0.1 10^3/uL (0.0-0.2); BASO % 0.8 % (0.0-1.0); EOS # 0.2 10^3/uL (0.0-0.5); EOS % 2.8 % (0.0-3.0); HEMATOCRIT 41.1 % (42.0-52.0); HEMOGLOBIN 13.4 g/dl (13.5-17.5); LYMPH # 1.2 10^3/uL (1.5-5.0); LYMPH % 14.6 % (24.0-44.0); MEAN CORPUSCULAR HEMOGLOBIN 33.1 pg (27.0-33.0); MEAN CORPUSCULAR HGB CONC 32.6 g/dl (32.0-36.5); MEAN CORPUSCULAR VOLUME 101.5 fl (80.0-96.0); MONO # 0.7 10^3/uL (0.0-0.8); MONO % 8.6 % (2.0-8.0); NEUTROPHILS # 5.8 10^3/uL (1.5-8.5); NEUTROPHILS % 72.8 % (36.0-66.0); PLATELET COUNT, AUTOMATED 203 10^3/uL (150-450); RED BLOOD COUNT 4.05 10^6/uL (4.30-6.10); WHITE BLOOD COUNT 7.9 10^3/uL (4.0-10.0)
[2022-07-28 17:06] LABS: ALBUMIN 3.1 G/DL (3.2-5.2); ALKALINE PHOSPHATASE 121 U/L (46-116); ALT/SGPT 10 U/L (7.0-40); AST/SGOT 16 U/L (<34); BILIRUBIN,TOTAL 0.8 MG/DL (0.3-1.2); BLOOD UREA NITROGEN 12 MG/DL (9-23); CALCIUM LEVEL 8.6 MG/DL (8.3-10.6); CARBON DIOXIDE LEVEL 28 MMOL/L (20-31); CHLORIDE LEVEL 106 MMOL/L (98-107); CREATININE FOR GFR 0.92 MG/DL (0.70-1.30); GLOMERULAR FILTRATION RATE > 60.0 (>42); GLUCOSE, FASTING 129 MG/DL (74-106); MAGNESIUM LEVEL 1.7 MG/DL (1.8-2.4); POTASSIUM SERUM 4.2 MMOL/L (3.5-5.1); SODIUM LEVEL 142 MMOL/L (136-145); TOTAL PROTEIN 5.6 G/DL (5.7-8.2)
[2022-07-28] MEDS ORDERED: MAGNESIUM OXIDE 400MG TAB (MAG-OX) PO ONE (17:45)
[2022-07-28 19:22] VITALS: BP 124/71; TEMP 96.9; O2SAT 99
[2022-07-28] MEDS: APIXABAN 5 MG TAB (ELIQUIS) PO SCH (20:39)
[2022-07-28] MEDS: ATORVASTATIN 20 MG TAB PO SCH (20:40)
[2022-07-29 07:52] VITALS: BP 143/64; TEMP 96.6; O2SAT 100
[2022-07-29] MEDS: ADVAIR HFA 115/21MCG INHALER INH SCH ×2 (08:00→20:09)
[2022-07-29] MEDS: MULTIVITAMINS/MINERALS THERAP 1 TAB PO SCH (08:03)
[2022-07-29] MEDS: VITAMIN D 1,000 INTERNATIONAL UNITS TABLET PO SCH (08:04)
[2022-07-29] MEDS: CETIRIZINE (ZyrTEC) 10 MG TAB PO SCH (08:04)
[2022-07-29] MEDS: allopurinoL 300 MG TAB PO SCH (08:04)
[2022-07-29] MEDS: APIXABAN 5 MG TAB (ELIQUIS) PO SCH ×2 (08:05→20:26)
[2022-07-29] MEDS: PARoxetine 20MG TABLET PO SCH (08:05)
[2022-07-29] MEDS: dilTIAZem 120MG **CD** CAPSULE PO SCH (08:05)
[2022-07-29] MEDS: ACETAMINOPHEN TAB 650MG DOSE (2X325MG) PO SCH ×2 (08:05→20:27)
[2022-07-29] MEDS: ATORVASTATIN 20 MG TAB PO SCH (20:26)
[2022-07-29 20:39] VITALS: BP 130/69; TEMP 97.3; O2SAT 99
[2022-07-30] MEDS: ADVAIR HFA 115/21MCG INHALER INH SCH ×2 (07:25→19:39)
[2022-07-30 07:41] VITALS: BP 138/70; TEMP 96.9; O2SAT 99
[2022-07-30] MEDS: allopurinoL 300 MG TAB PO SCH (08:03)
[2022-07-30] MEDS: PARoxetine 20MG TABLET PO SCH (08:03)
[2022-07-30] MEDS: MULTIVITAMINS/MINERALS THERAP 1 TAB PO SCH (08:03)
[2022-07-30] MEDS: VITAMIN D 1,000 INTERNATIONAL UNITS TABLET PO SCH (08:03)
[2022-07-30] MEDS: dilTIAZem 120MG **CD** CAPSULE PO SCH (08:03)
[2022-07-30] MEDS: CETIRIZINE (ZyrTEC) 10 MG TAB PO SCH (08:03)
[2022-07-30] MEDS: APIXABAN 5 MG TAB (ELIQUIS) PO SCH ×2 (08:03→20:43)
[2022-07-30] MEDS: ACETAMINOPHEN TAB 650MG DOSE (2X325MG) PO SCH ×2 (08:04→20:43)
[2022-07-30 20:00] VITALS: BP 130/73; TEMP 97; O2SAT 99
[2022-07-30] MEDS: ATORVASTATIN 20 MG TAB PO SCH (20:42)
[2022-07-31 07:39] VITALS: BP 133/67; TEMP 96.2; O2SAT 99
[2022-07-31] MEDS: ADVAIR HFA 115/21MCG INHALER INH SCH ×2 (08:00→19:59)
[2022-07-31] MEDS: VITAMIN D 1,000 INTERNATIONAL UNITS TABLET PO SCH (10:23)
[2022-07-31] MEDS: allopurinoL 300 MG TAB PO SCH (10:23)
[2022-07-31] MEDS: ACETAMINOPHEN TAB 650MG DOSE (2X325MG) PO SCH ×2 (10:24→20:14)
[2022-07-31] MEDS: PARoxetine 20MG TABLET PO SCH (10:24)
[2022-07-31] MEDS: APIXABAN 5 MG TAB (ELIQUIS) PO SCH ×2 (10:24→20:14)
[2022-07-31] MEDS: CETIRIZINE (ZyrTEC) 10 MG TAB PO SCH (10:24)
[2022-07-31] MEDS: dilTIAZem 120MG **CD** CAPSULE PO SCH (10:27)
[2022-07-31] MEDS: MULTIVITAMINS/MINERALS THERAP 1 TAB PO SCH (10:31)
[2022-07-31 20:10] VITALS: BP 118/57; TEMP 96.2; O2SAT 96
[2022-07-31] MEDS: ATORVASTATIN 20 MG TAB PO SCH (20:14)
[2022-08-01 07:44] VITALS: BP 127/64; TEMP 96.6; O2SAT 100
[2022-08-01] MEDS: ADVAIR HFA 115/21MCG INHALER INH SCH (08:33)
[2022-08-01 08:43] VITALS: BP 127/64
[2022-08-01] MEDS: APIXABAN 5 MG TAB (ELIQUIS) PO SCH (08:43)
[2022-08-01] MEDS: VITAMIN D 1,000 INTERNATIONAL UNITS TABLET PO SCH (08:43)
[2022-08-01] MEDS: PARoxetine 20MG TABLET PO SCH (08:43)
[2022-08-01] MEDS: ACETAMINOPHEN TAB 650MG DOSE (2X325MG) PO SCH (08:43)
[2022-08-01] MEDS: dilTIAZem 120MG **CD** CAPSULE PO SCH (08:43)
[2022-08-01] MEDS: CETIRIZINE (ZyrTEC) 10 MG TAB PO SCH (08:43)
[2022-08-01] MEDS: MULTIVITAMINS/MINERALS THERAP 1 TAB PO SCH (08:43)
[2022-08-01] MEDS: allopurinoL 300 MG TAB PO SCH (08:43)
[2022-08-01] MEDS ORDERED: DILT120C78 PO (11:37)
== END 2022-08-01 14:00 | disposition home health service (06) ==
LOC: M SDC 14:52 → M PCU 14:53 → M SDC 20:28 → UNDOFXSDCSVC 07-28 14:58 → UNDOFXSDCACCOM 07-28 14:58 → UNDOFXSDCRRACCOM 07-28 14:58 → M PCU 07-30 23:37
PROVIDERS: ADMIT Internal Medicine; ATTEND Internal Medicine
DX: I49.5 Sick sinus syndrome (principal); I13.0 Hypertensive heart and chronic kidney disease with heart failure and stage 1 through stage 4 chronic kidney disease, or unspecified chronic kidney disease; I50.30 Unspecified diastolic (congestive) heart failure; I48.21 Permanent atrial fibrillation; J44.9 Chronic obstructive pulmonary disease, unspecified; J45.909 Unspecified asthma, uncomplicated; E78.00 Pure hypercholesterolemia, unspecified; R94.31 Abnormal electrocardiogram [ECG] [EKG]; F03.A0 Unspecified dementia, mild, without behavioral disturbance, psychotic disturbance, mood disturbance, and anxiety; F41.9 Anxiety disorder, unspecified; F32.A Depression, unspecified; E55.9 Vitamin D deficiency, unspecified; M10.9 Gout, unspecified; Z79.899 Other long term (current) drug therapy; Z79.01 Long term (current) use of anticoagulants; Z86.73 Personal history of transient ischemic attack (TIA), and cerebral infarction without residual deficits; Z79.51 Long term (current) use of inhaled steroids
CPT/HCPCS: 33207; 36415; 71045; 71046; 76000; 80053; 83735; 85025; 87635; 93005; 94640; 97116; 97161; 97165; 97530; 97535; C1786; C1898; G0378; J0690; J3010; Q9967

== ENCOUNTER 2024-04-17 14:26 | Emergency (ER) | payer OTHER ==
[~2024-04-17] VITALS: Ht 188 cm; Wt 99.1 kg
[~2024-04-17 14:26] MED LIST changes: +ACET1TAB55 PO; +ADVA1AER9 INH; +ALBU8.5H INH; +ATOR-398 PO; +DILT120C78 PO; -LIPI80TA PO; +VITA250T27 PO; -ceFAZolin SOD 2 GM in IV 1 EA IV ONE
[2024-04-17 15:19] LABS: BASO % 0.1 % (0.0-1.0); LYMPH # 0.6 10^3/uL (1.5-5.0); LYMPH % 7.6 % (24.0-44.0); MEAN CORPUSCULAR HEMOGLOBIN 33.6 pg (27.0-33.0); MEAN CORPUSCULAR HGB CONC 33.3 g/dl (32.0-36.5); MEAN CORPUSCULAR VOLUME 100.7 fl (80.0-96.0); MONO # 0.9 10^3/uL (0.0-0.8); MONO % 12.7 % (2.0-8.0); NEUTROPHILS # 5.7 10^3/uL (1.5-8.5); NEUTROPHILS % 79.2 % (36.0-66.0); PLATELET COUNT, AUTOMATED 275 10^3/uL (150-450); RED BLOOD COUNT 4.47 10^6/uL (4.30-6.10); WHITE BLOOD COUNT 7.2 10^3/uL (4.0-10.0)
[2024-04-17 15:58] LABS: INR 1.23; PARTIAL THROMBOPLASTIN TIME 33.9 SECONDS (24.8-34.2); PROTHROMBIN TIME 15.8 SECONDS (12.5-14.5)
[2024-04-17 16:20] LABS: CALCIUM LEVEL 8.8 MG/DL (8.3-10.6); CREATININE FOR GFR 1.32 MG/DL (0.70-1.30); POTASSIUM SERUM 4.4 MMOL/L (3.5-5.1)
[2024-04-17] MEDS: NS (Normal Saline) 0.9% 1,000 ML IV ONE (18:03)
[2024-04-17] MEDS ORDERED: HOLTER MONITOR XX (20:28)
[2024-04-17 21:15] VITALS: BP 128/87; TEMP 98; O2SAT 97
== END 2024-04-17 21:18 | disposition home or self-care (01) ==
LOC: M ED 14:26
DX: R53.1 Weakness (principal); E86.0 Dehydration; I48.91 Unspecified atrial fibrillation; J44.9 Chronic obstructive pulmonary disease, unspecified; J45.909 Unspecified asthma, uncomplicated; Z86.73 Personal history of transient ischemic attack (TIA), and cerebral infarction without residual deficits; Z79.01 Long term (current) use of anticoagulants; Z79.899 Other long term (current) drug therapy